=== PATIENT | female | born 1980 | race Caucasian/White ===

== ENCOUNTER 2017-02-08 17:53 | Emergency (ER) | payer OTHER ==
[~2017-02-08] VITALS: Ht 162.6 cm; Wt 61.0 kg
[~2017-02-08 17:53] MED LIST: LURA40 PO
[2017-02-08 17:57] VITALS: BP 122/83
== END 2017-02-08 21:22 | disposition left against medical advice (07) ==
LOC: EMS 17:55
DX: F32.9 Major depressive disorder, single episode, unspecified (principal); F41.9 Anxiety disorder, unspecified; F20.9 Schizophrenia, unspecified; Z53.21 Procedure and treatment not carried out due to patient leaving prior to being seen by health care provider

== ENCOUNTER 2017-05-02 11:10 | Emergency (ER) | payer OTHER ==
[~2017-05-02] VITALS: Ht 162.6 cm; Wt 59.1 kg
[2017-05-02 11:53] LABS: BASOPHILS # (AUTO) 0.07 K/uL (0.00-0.20); BASOPHILS % (AUTO) 1.1 % (0.0-2.0); EOSINOPHILS # (AUTO) 0.04 K/uL (0.00-0.70); EOSINOPHILS % (AUTO) 0.74 % (1.0-6.0); HEMOGLOBIN 12.9 g/dL (12.0-16.0); LYMPHOCYTES # (AUTO) 1.8 K/uL (1.0-4.8); LYMPHOCYTES % (AUTO) 30.8 % (22.0-44.0); MEAN CORPUSCULAR HEMOGLOBIN 24.9 pg (26.0-34.0); MEAN CORPUSCULAR HGB CONC 32.2 G/dL (31.0-37.0); MEAN CORPUSCULAR VOLUME 77 fL (80-100); MONOCYTES # (AUTO) 0.5 K/uL (0.1-1.0); NEUTROPHILS # (AUTO) 3.5 K/uL (1.8-7.7); NEUTROPHILS % (AUTO) 58.4 % (40.0-70.0); PLATELET COUNT (AUTO) 160 K/uL (150-450); RED BLOOD CELL COUNT(AUTO) 5.17 MIL/uL (4.00-5.20); RED CELL DISTRIBUTION WIDTH 18.4 % (11.5-14.5); WHITE BLOOD COUNT (AUTO) 5.9 K/uL (4.5-11.0)
[2017-05-02 11:59] LABS: ANION GAP 8 mmol/L (8-16); CALCIUM, TOTAL 8.5 mg/dL (8.8-10.5); CARBON DIOXIDE 27 mmol/L (22-29); CHLORIDE 103 mmol/L (98-107); CREATININE 0.68 mg/dL (0.60-1.30); GLOMERULAR FILTR. RATE CALC > 60 mL/min (>60); POTASSIUM 4.1 mmol/L (3.5-5.1); SODIUM SERUM 138 mmol/L (136-145); UREA NITROGEN, BLOOD 10 mg/dL (7-18)
[2017-05-02 12:05] LABS: ALANINE AMINOTRANSFERASE 36 U/L (12-78); ALBUMIN 3.3 g/dL (3.4-5.0); ASPARTATE AMINOTRANSFERASE 23 U/L (15-37); BILIRUBIN,TOTAL 0.5 mg/dL (0.1-1.0); TOTAL PROTEIN, SERUM 6.7 g/dL (6.4-8.2)
[2017-05-02 12:16] LABS: RBC MORPHOLOGY COMMENT ABNORMAL RBC MORPH
[2017-05-02 12:30] VITALS: BP 127/74
== END 2017-05-02 12:58 | disposition home or self-care (01) ==
LOC: EMS 11:17 → EEVIPCON 11:17 → EMS 12:58
DX: F20.9 Schizophrenia, unspecified (principal); F41.9 Anxiety disorder, unspecified
CPT/HCPCS: 36415; 80053; 85025; 99285; G0480

== ENCOUNTER 2023-07-21 03:18 | Inpatient (IN) | payer MEDICAID, OTHER ==
[~2023-07-21] VITALS: Ht 162.6 cm; Wt 66.7 kg
[~2023-07-21 03:18] MED LIST changes: -LURA40 PO; +LURA40TA2 PO
[2023-07-21 04:02] LABS: COVID AG,FIA SOURCE NASAL SWAB
[2023-07-21] MEDS ORDERED: ZOLPIDEM TARTRATE 10 MG TABLET PO PRN (04:15)
[2023-07-21] MEDS ORDERED: LORazepam 2 MG TABLET PO PRN (04:15)
[2023-07-21] MEDS ORDERED: HALOPERIDOL 5 MG TABLET PO PRN (04:15)
[2023-07-21 04:24] LABS: ANION GAP 11 mmol/L (8-16); CARBON DIOXIDE 25 mmol/L (22-29); CHLORIDE 101 mmol/L (98-107); CREATININE 0.65 mg/dL (0.60-1.30); GLOMERULAR FILTR. RATE CALC > 60 mL/min (>60); GLUCOSE,RANDOM 94 mg/dL (70-110); POTASSIUM 3.5 mmol/L (3.5-5.1); SODIUM SERUM 137 mmol/L (136-145); UREA NITROGEN, BLOOD 5 mg/dL (7-18)
[2023-07-21 04:25] LABS: SARS-COV2 (COVID) ANTIGEN,FIA Negative (Negative)
[2023-07-21 04:26] LABS: BASOPHILS % (AUTO) 0.4 % (0.0-2.0); EOSINOPHILS % (AUTO) 0.7 % (1.0-6.0); HEMATOCRIT 39.7 % (36-46); HEMOGLOBIN 12.8 g/dL (12.0-16.0); LYMPHOCYTES # (AUTO) 1.7 K/uL (1.0-4.8); LYMPHOCYTES % (AUTO) 27.3 % (22.0-44.0); MEAN CORPUSCULAR HEMOGLOBIN 24.1 pg (26.0-34.0); MEAN CORPUSCULAR HGB CONC 32.3 G/dL (31.0-37.0); MEAN CORPUSCULAR VOLUME 75 fL (80-100); MONOCYTES # (AUTO) 0.5 K/uL (0.1-1.0); MONOCYTES % (AUTO) 8.6 % (2.0-9.0); NEUTROPHILS # (AUTO) 3.9 K/uL (1.8-7.7); PLATELET COUNT (AUTO) 140 K/uL (150-450); RED BLOOD CELL COUNT(AUTO) 5.33 MIL/uL (4.00-5.20); RED CELL DISTRIBUTION WIDTH 14.7 % (11.5-14.5); WHITE BLOOD COUNT (AUTO) 6.3 K/uL (4.5-11.0)
[2023-07-21 04:30] LABS: ALBUMIN 3.6 g/dL (3.4-5.0); ALKALINE PHOSPHATASE 66 U/L (46-116); ASPARTATE AMINOTRANSFERASE 10 U/L (15-37); BILIRUBIN,TOTAL 1.3 mg/dL (0.1-1.0); TOTAL PROTEIN, SERUM 6.7 g/dL (6.4-8.2)
[2023-07-21 04:37] LABS: ALCOHOL, BLOOD (SERUM) < 3 mg/dL (0-10)
[2023-07-21 04:42] LABS: ALANINE AMINOTRANSFERASE < 6 U/L (12-78)
[2023-07-22] MEDS ORDERED: ONDANSETRON HCL 4 MG TABLET PO PRN (12:45)
[2023-07-22] MEDS ORDERED: MAG HYDROX/AL HYDROX/SIMETH ES 30 ML SUSPENSION UDCUP PO PRN (12:45)
[2023-07-22] MEDS ORDERED: CloNIDine HCL 0.1 MG TABLET PO PRN (12:45)
[2023-07-22] MEDS ORDERED: ALBUTEROL SULFATE HFA 90 MCG/PUFF 8 GM INHALER IH PRN (12:45)
[2023-07-22] MEDS ORDERED: IBUPROFEN 400 MG TABLET PO PRN (12:45)
[2023-07-22] MEDS ORDERED: LOPERAMIDE HCL 2 MG CAPSULE PO PRN (12:45)
[2023-07-22] MEDS ORDERED: PETROLATUM,WHITE 28 GM JELLY TP PRN (12:45)
[2023-07-22] MEDS ORDERED: NICOTINE 14 MG/24 HOUR PATCH TD PRN (12:45)
[2023-07-22] MEDS ORDERED: MAGNESIUM HYDROXIDE SUSPENSION 30 ML UDCUP PO PRN (12:45)
[2023-07-22] MEDS ORDERED: GuaiFENesin/D-METHORPHAN [SUGAR-FREE] 200-20MG/10 ML SYRUP UDCUP PO PRN (12:45)
[2023-07-22] MEDS ORDERED: DOCUSATE SODIUM 100 MG CAPSULE PO PRN (12:45)
[2023-07-22] MEDS ORDERED: ACETAMINOPHEN 325 MG TABLET PO PRN (12:45)
[2023-07-22 13:01] LABS: APPEARANCE,URINE CLEAR (CLEAR); BILIRUBIN,URINE NEGATIVE (NEGATIVE); COLOR,URINE LIGHT YELLOW (YELLOW); GLUCOSE, URINE (UA) NEGATIVE (NEGATIVE); KETONES,URINE 40-60 mg/dL (NEGATIVE); LEUKOCYTE ESTERASE ,URINE NEGATIVE (NEGATIVE); NITRATE,URINE NEGATIVE (NEGATIVE); OCCULT BLOOD,URINE NEGATIVE (NEGATIVE); PROTEIN,URINE NEGATIVE (NEGATIVE); SPECIFIC GRAVITIY, URINE 1.013 (1.003-1.030); UROBILINOGEN,URINE <=1.0 mg/dL (<=1.0)
[2023-07-22 13:07] LABS: ALCOHOL, URINE DRUG SCREEN NEGATIVE (NEGATIVE); AMPHET/METH SCREEN,URINE NEGATIVE (NEGATIVE); BARBITURATE SCREEN, URINE NEGATIVE (NEGATIVE); BENZODIAZEPINES SCREEN,URINE NEGATIVE (NEGATIVE); CANNABINOID SCREEN,URINE NEGATIVE (NEGATIVE); COCAINE SCREEN,URINE NEGATIVE (NEGATIVE); METHADONE SCREEN, URINE NEGATIVE (NEGATIVE); OPIATE SCREEN,URINE NEGATIVE (NEGATIVE); PHENCYCLIDINE SCREEN,URINE NEGATIVE (NEGATIVE)
[2023-07-22 14:51] VITALS: BP 92/77; PULSE 101; RESP 18; TEMP 97.3
[2023-07-22] MEDS ORDERED: PNEUMOCOCCAL VACCINE POLYVALENT 0.5 ML SYRINGE [PPSV23] IM. ONE (16:00)
[2023-07-22] MEDS: LURASIDONE HCL 60 MG TABLET PO SCH (17:47)
[2023-07-22 22:40] VITALS: BP 101/73; PULSE 98; RESP 18; TEMP 97.3
[2023-07-23 06:34] LABS: HEMOGLOBIN A1C 4.7 % (3.8-5.6)
[2023-07-23] MEDS: LURASIDONE HCL 60 MG TABLET PO SCH ×2 (06:48→17:18)
[2023-07-23 07:03] LABS: THYROID STIMULATING HORMONE 0.85 uIU/mL (0.36-3.74)
[2023-07-23 07:28] LABS: CHOL/HDL RATIO 2.4 (3.9-5.7)
[2023-07-23 10:05] VITALS: BP 101/68; PULSE 87; RESP 17; TEMP 98.1
[2023-07-23 20:53] VITALS: BP 104/64; PULSE 81; RESP 18; TEMP 97.6
[2023-07-24] MEDS: LURASIDONE HCL 60 MG TABLET PO SCH ×2 (06:57→18:25)
[2023-07-24 10:40] VITALS: BP 119/67; PULSE 89; RESP 18
[2023-07-24 20:56] VITALS: BP 121/67; PULSE 88; RESP 18; TEMP 98
[2023-07-25] MEDS: LURASIDONE HCL 60 MG TABLET PO SCH (06:59)
[2023-07-25 08:10] VITALS: BP 112/71; PULSE 82; RESP 18; TEMP 97.1
[2023-07-25] MEDS ORDERED: LURA60TA4 PO (11:41)
== END 2023-07-25 15:05 | disposition home or self-care (01) | DRG 750 ==
LOC: EMS 03:18 → 3EI 07-22 11:26
PROVIDERS: ADMIT Psychiatry & Neurology Child & Adolescent Psychiatry; ATTEND Psychiatry & Neurology Child & Adolescent Psychiatry
DX: F25.1 Schizoaffective disorder, depressive type (principal); D69.6 Thrombocytopenia, unspecified; R45.851 Suicidal ideations; F41.9 Anxiety disorder, unspecified; F32.9 Major depressive disorder, single episode, unspecified; Z20.822 Contact with and (suspected) exposure to COVID-19; G47.00 Insomnia, unspecified; E80.6 Other disorders of bilirubin metabolism; Z79.899 Other long term (current) drug therapy
CPT/HCPCS: 80053; 80061; 80307; 81003; 83036; 84443; 84703; 85025; 99285; G0480; Q9967

== ENCOUNTER 2024-06-10 18:52 | Inpatient (IN) | payer MEDICAID, OTHER ==
[~2024-06-10] VITALS: Ht 162.6 cm; Wt 74.5 kg
[~2024-06-10 18:52] MED LIST changes: -LURA40TA2 PO; +LURA60TA4 PO
[2024-06-10 19:33] LABS: BASOPHILS % (AUTO) 0.6 % (0.0-2.0); HEMATOCRIT 35.9 % (36-46); HEMOGLOBIN 11.2 g/dL (12.0-16.0); LYMPHOCYTES % (AUTO) 25.4 % (22.0-44.0); MEAN CORPUSCULAR HEMOGLOBIN 22.8 pg (26.0-34.0); MEAN CORPUSCULAR HGB CONC 31.2 G/dL (31.0-37.0); MEAN CORPUSCULAR VOLUME 73 fL (80-100); MONOCYTES # (AUTO) 0.6 K/uL (0.1-1.0); MONOCYTES % (AUTO) 7.8 % (2.0-9.0); NEUTROPHILS # (AUTO) 5.2 K/uL (1.8-7.7); NEUTROPHILS % (AUTO) 65.2 % (40.0-70.0); PLATELET COUNT (AUTO) 183 K/uL (150-450); RED BLOOD CELL COUNT(AUTO) 4.91 MIL/uL (4.00-5.20); RED CELL DISTRIBUTION WIDTH 17.4 % (11.5-14.5); WHITE BLOOD COUNT (AUTO) 7.9 K/uL (4.5-11.0)
[2024-06-10 19:42] LABS: ANION GAP 6 mmol/L (8-16); CALCIUM, TOTAL 8.9 mg/dL (8.8-10.5); CARBON DIOXIDE 29 mmol/L (22-29); CHLORIDE 101 mmol/L (98-107); CREATININE 0.58 mg/dL (0.60-1.30); GLOMERULAR FILTR. RATE CALC > 60 mL/min (>60); GLUCOSE,RANDOM 83 mg/dL (70-110); POTASSIUM 3.6 mmol/L (3.5-5.1); SODIUM SERUM 136 mmol/L (136-145); UREA NITROGEN, BLOOD 13 mg/dL (7-18)
[2024-06-10 19:54] LABS: HCG,QUANTITATIVE < 1 mIU/mL (0-6); THYROID STIMULATING HORMONE 1.89 uIU/mL (0.36-3.74)
[2024-06-10 20:05] LABS: ALCOHOL, BLOOD (SERUM) < 3 mg/dL (0-10)
[2024-06-10 20:14] LABS: COVID AG,FIA SOURCE NPH
[2024-06-10 20:38] LABS: SARS-COV2 (COVID) ANTIGEN,FIA Negative (Negative)
[2024-06-10 21:20] LABS: APPEARANCE,URINE CLEAR (CLEAR); BILIRUBIN,URINE NEGATIVE (NEGATIVE); COLOR,URINE COLORLESS (YELLOW); GLUCOSE, URINE (UA) NEGATIVE (NEGATIVE); KETONES,URINE TRACE mg/dL (NEGATIVE); LEUKOCYTE ESTERASE ,URINE NEGATIVE (NEGATIVE); NITRATE,URINE NEGATIVE (NEGATIVE); OCCULT BLOOD,URINE NEGATIVE (NEGATIVE); PH,URINE 6.5 (5.0-8.0); PH,URINE DRUG SCREEN 6.5 (5.0-8.0); PROTEIN,URINE NEGATIVE (NEGATIVE); SPECIFIC GRAVITIY, URINE 1.003 (1.003-1.030); UROBILINOGEN,URINE <=1.0 mg/dL (<=1.0)
[2024-06-10 21:25] LABS: ALCOHOL, URINE DRUG SCREEN NEGATIVE (NEGATIVE); AMPHET/METH SCREEN,URINE NEGATIVE (NEGATIVE); BARBITURATE SCREEN, URINE NEGATIVE (NEGATIVE); BENZODIAZEPINES SCREEN,URINE NEGATIVE (NEGATIVE); CANNABINOID SCREEN,URINE NEGATIVE (NEGATIVE); COCAINE SCREEN,URINE NEGATIVE (NEGATIVE); METHADONE SCREEN, URINE NEGATIVE (NEGATIVE); OPIATE SCREEN,URINE NEGATIVE (NEGATIVE); PHENCYCLIDINE SCREEN,URINE NEGATIVE (NEGATIVE)
[2024-06-10] MEDS ORDERED: ZOLPIDEM TARTRATE 10 MG TABLET PO PRN (23:15)
[2024-06-11 04:27] VITALS: BP 129/91; PULSE 98; RESP 18; TEMP 98.2
[2024-06-11 06:08] VITALS: BP 126/91; PULSE 98; RESP 18; TEMP 98.2; O2SAT 99
[2024-06-11 08:36] VITALS: BP 123/64; PULSE 94; RESP 17; TEMP 97.7; O2SAT 94
[2024-06-11] MEDS ORDERED: PETROLATUM,WHITE 28 GM JELLY TP PRN (09:00)
[2024-06-11] MEDS ORDERED: MAGNESIUM HYDROXIDE SUSPENSION 30 ML UDCUP PO PRN (09:00)
[2024-06-11] MEDS ORDERED: CloNIDine HCL 0.1 MG TABLET PO PRN (09:00)
[2024-06-11] MEDS ORDERED: DOCUSATE SODIUM 100 MG CAPSULE PO PRN (09:00)
[2024-06-11] MEDS ORDERED: OMEPRAZOLE 20 MG CAPSULE PO PRN (09:00)
[2024-06-11] MEDS ORDERED: ALBUTEROL SULFATE HFA 90 MCG/PUFF 8 GM INHALER IH PRN (09:00)
[2024-06-11] MEDS ORDERED: LOPERAMIDE HCL 2 MG CAPSULE PO PRN (09:00)
[2024-06-11] MEDS ORDERED: BENZOCAINE/MENTHOL LOZENGE PO PRN (09:00)
[2024-06-11] MEDS: LITHIUM CARBONATE 300 MG CAPSULE PO SCH (10:07)
[2024-06-11] MEDS: DIVALPROEX SODIUM 500 MG DR TABLET PO SCH (10:07)
[2024-06-11] MEDS: LORazepam 2 MG TABLET PO PRN (11:05)
[2024-06-11] MEDS: HALOPERIDOL 5 MG TABLET PO PRN (11:05)
[2024-06-11] MEDS: LURASIDONE HCL 60 MG TABLET PO SCH (16:57)
[2024-06-11] MEDS: RisperiDONE 2 MG TABLET PO SCH (16:57)
[2024-06-11] MEDS ORDERED: DIVALPROEX SODIUM 500 MG DR TABLET PO SCH (17:00)
[2024-06-11] MEDS ORDERED: LITHIUM CARBONATE 300 MG CAPSULE PO SCH (17:00)
[2024-06-11 20:46] VITALS: BP 100/65; PULSE 89; RESP 16; TEMP 98.4; O2SAT 98
[2024-06-12 08:23] VITALS: BP 105/60; PULSE 80; RESP 17; TEMP 97.3; O2SAT 99
[2024-06-12] MEDS: DiphenhydrAMINE HCL 50 MG/ML VIAL IM ONE (17:51)
[2024-06-12] MEDS: LORazepam 2 MG/ML VIAL IM ONE (17:51)
[2024-06-12] MEDS: HALOPERIDOL LACTATE 5 MG/ML VIAL IM ONE (17:52)
[2024-06-12 20:13] VITALS: BP 104/60; PULSE 98; RESP 18; TEMP 97.5; O2SAT 99
[2024-06-13 08:10] VITALS: BP 102/64; PULSE 89; RESP 16; TEMP 97.6; O2SAT 100
[2024-06-13] MEDS ORDERED: LORazepam 2 MG/ML VIAL ONE (16:46)
[2024-06-13] MEDS ORDERED: HALOPERIDOL LACTATE 5 MG/ML VIAL ONE (16:47)
[2024-06-13] MEDS ORDERED: DiphenhydrAMINE HCL 50 MG/ML VIAL ONE (16:47)
[2024-06-13 17:10] VITALS: BP 102/63; PULSE 63; RESP 17; TEMP 97.7; O2SAT 98
[2024-06-13] MEDS: ACETAMINOPHEN 325 MG TABLET PO PRN (17:48)
[2024-06-13] MEDS: DiphenhydrAMINE HCL 50 MG/ML VIAL IM ONE (18:22)
[2024-06-13] MEDS: LORazepam 2 MG/ML VIAL IM ONE (18:22)
[2024-06-13] MEDS: HALOPERIDOL LACTATE 5 MG/ML VIAL IM ONE (18:23)
[2024-06-13 20:00] VITALS: RESP 16
[2024-06-14 08:04] VITALS: BP 100/60; PULSE 78; RESP 18; TEMP 98; O2SAT 100
[2024-06-14] MEDS ORDERED: HALOPERIDOL LACTATE 5 MG/ML VIAL ONE (08:56)
[2024-06-14] MEDS ORDERED: LORazepam 2 MG/ML VIAL ONE (08:56)
[2024-06-14] MEDS ORDERED: DiphenhydrAMINE HCL 50 MG/ML VIAL ONE (08:57)
[2024-06-14] MEDS: LORazepam 2 MG/ML VIAL IM ONE (09:42)
[2024-06-14] MEDS: DiphenhydrAMINE HCL 50 MG/ML VIAL IM ONE (09:42)
[2024-06-14] MEDS: HALOPERIDOL LACTATE 5 MG/ML VIAL IM ONE (09:45)
[2024-06-14 20:00] VITALS: BP 110/60; PULSE 105; RESP 17; TEMP 97.1; O2SAT 100
[2024-06-15 08:08] VITALS: BP 116/73; PULSE 84; RESP 16; TEMP 98; O2SAT 97
[2024-06-15 08:29] LABS: LITHIUM < 0.20 mmol/L (0.60-1.20)
[2024-06-15 08:34] LABS: VALPROIC ACID < 3 mcg/mL (50-100)
[2024-06-15 20:00] VITALS: RESP 16
[2024-06-16 09:33] VITALS: BP 113/60; PULSE 87; RESP 17; TEMP 97.6; O2SAT 97
[2024-06-16 20:00] VITALS: BP 118/75; PULSE 100; RESP 16; TEMP 98; O2SAT 97
[2024-06-17 08:18] VITALS: BP 110/66; PULSE 93; RESP 20; TEMP 97.9; O2SAT 98
[2024-06-17 20:16] VITALS: BP 131/66; PULSE 93; RESP 19; TEMP 97.5
[2024-06-18 08:30] VITALS: BP 114/67; PULSE 86; RESP 16; TEMP 98; O2SAT 99
[2024-06-18] MEDS: GuaiFENesin [SUGAR-FREE] 200 MG/10 ML SOLUTION UDCUP PO SCH (12:00)
[2024-06-18] MEDS: VALPROIC ACID 250 MG/5 ML SOLUTION UDCUP PO SCH (15:59)
[2024-06-18] MEDS: LITHIUM CITRATE SOLUTION 8 MEQ/5 ML [8 MEQ = 300 MG] UDCUP PO SCH (16:02)
[2024-06-18 20:00] VITALS: RESP 16
[2024-06-19 08:19] LABS: LITHIUM < 0.20 mmol/L (0.60-1.20)
[2024-06-19 08:24] LABS: VALPROIC ACID 23 mcg/mL (50-100)
[2024-06-19 08:29] VITALS: BP 105/69; PULSE 89; RESP 18; TEMP 97.5; O2SAT 99
[2024-06-19] MEDS ORDERED: DiphenhydrAMINE HCL 50 MG/ML VIAL ONE (08:58)
[2024-06-19] MEDS ORDERED: LORazepam 2 MG/ML VIAL ONE (08:58)
[2024-06-19] MEDS ORDERED: HALOPERIDOL LACTATE 5 MG/ML VIAL ONE (08:58)
[2024-06-19] MEDS: LORazepam 2 MG/ML VIAL IM ONE (17:37)
[2024-06-19] MEDS: HALOPERIDOL LACTATE 5 MG/ML VIAL IM ONE (17:37)
[2024-06-19] MEDS: DiphenhydrAMINE HCL 50 MG/ML VIAL IM ONE (17:38)
[2024-06-20 02:13] VITALS: RESP 16
[2024-06-20 08:15] VITALS: BP 111/64; PULSE 90; RESP 18; TEMP 97
[2024-06-20 21:31] VITALS: BP 119/78; PULSE 98; RESP 18; TEMP 97.6; O2SAT 100
[2024-06-20] MEDS: BACITRACIN 28 GM OINTMENT TP PRN (21:40)
[2024-06-21 01:18] VITALS: BP 112/76; PULSE 95; RESP 16; TEMP 98; O2SAT 98
[2024-06-21] MEDS: IBUPROFEN 600 MG TABLET PO PRN (01:18)
[2024-06-21] MEDS: MAG HYDROX/ALUMINUM HYD/SIMETH ES 30 ML SUSPENSION UDCUP PO PRN (01:19)
[2024-06-21 02:18] VITALS: PULSE 96; TEMP 97.8
[2024-06-21 09:13] VITALS: BP 111/64; PULSE 98; RESP 17; TEMP 97.5; O2SAT 97
[2024-06-21 20:54] VITALS: BP 131/67; PULSE 95; RESP 18; TEMP 97.1; O2SAT 98
[2024-06-22] VITALS (10 sets, daily range): BP systolic 113–127; BP diastolic 63–86; PULSE 87–103; RESP 16–20; TEMP 97.1–99.5; O2SAT 97–100
[2024-06-23 08:28] VITALS: BP 108/63; PULSE 100; RESP 16; TEMP 97.6; O2SAT 98
[2024-06-23 09:22] LABS: LITHIUM 0.24 mmol/L (0.60-1.20)
[2024-06-23 20:21] VITALS: BP 113/70; PULSE 97; RESP 16; TEMP 98.3; O2SAT 98
[2024-06-24] MEDS: LITHIUM CITRATE SOLUTION 8 MEQ/5 ML [8 MEQ = 300 MG] UDCUP PO SCH (08:00)
[2024-06-24 08:34] VITALS: BP 110/87; PULSE 100; RESP 18; TEMP 97.9; O2SAT 99
[2024-06-24] MEDS ORDERED: LITH300C3 PO ×2 (14:59→17:51)
[2024-06-24] MEDS ORDERED: RISP-32 PO ×2 (14:59→17:51)
[2024-06-24] MEDS ORDERED: LURA60TA PO ×2 (14:59→17:51)
[2024-06-24] MEDS ORDERED: DIVA-112 PO ×2 (14:59→17:51)
[2024-06-24] MEDS: DIVALPROEX SODIUM 500 MG DR TABLET PO SCH (16:00)
[2024-06-24] MEDS: LITHIUM CARBONATE 300 MG CAPSULE PO SCH (16:00)
[2024-06-24] MEDS: ONDANSETRON HCL 4 MG TABLET PO PRN (16:48)
== END 2024-06-24 17:25 | disposition home or self-care (01) | DRG 750 ==
LOC: EMS 18:52 → B3A 06-11 00:54
PROVIDERS: ADMIT Psychiatry & Neurology Psychiatry; ATTEND Psychiatry & Neurology Psychiatry
DX: F25.0 Schizoaffective disorder, bipolar type (principal); Z91.148 Patient's other noncompliance with medication regimen for other reason; F41.9 Anxiety disorder, unspecified; K59.00 Constipation, unspecified; G47.00 Insomnia, unspecified; Z20.822 Contact with and (suspected) exposure to COVID-19
CPT/HCPCS: 80048; 80164; 80178; 80307; 81003; 83880; 84443; 84702; 85025; 99285; G0480; J1200; J1630; J2060; Q0162

== ENCOUNTER 2024-12-28 00:42 | Inpatient (IN) | payer MEDICAID ==
[~2024-12-28] VITALS: Ht 162.6 cm; Wt 84.0 kg
[~2024-12-28 00:42] MED LIST changes: +DIVA-112 PO; +LITH300C3 PO; +LURA60TA PO; -LURA60TA4 PO; +RISP-32 PO
[2024-12-28 01:51] LABS: COVID AG,FIA SOURCE NASAL SWAB
[2024-12-28] MEDS: DiphenhydrAMINE HCL 50 MG/ML VIAL IM ONE (01:55)
[2024-12-28] MEDS: HALOPERIDOL LACTATE 5 MG/ML VIAL IM ONE (01:56)
[2024-12-28] MEDS: LORazepam 2 MG/ML VIAL IM ONE (01:56)
[2024-12-28 02:12] LABS: SARS-COV2 (COVID) ANTIGEN,FIA Negative (Negative)
[2024-12-28 03:04] LABS: BASOPHILS % (AUTO) 0.7 % (0.0-2.0); EOSINOPHILS % (AUTO) 0.5 % (1.0-6.0); HEMOGLOBIN 11.5 g/dL (12.0-16.0); LYMPHOCYTES # (AUTO) 1.9 K/uL (1.0-4.8); LYMPHOCYTES % (AUTO) 21.4 % (22.0-44.0); MEAN CORPUSCULAR HEMOGLOBIN 23.7 pg (26.0-34.0); MEAN CORPUSCULAR HGB CONC 32.1 G/dL (31.0-37.0); MEAN CORPUSCULAR VOLUME 74 fL (80-100); MONOCYTES # (AUTO) 0.5 K/uL (0.1-1.0); NEUTROPHILS # (AUTO) 6.2 K/uL (1.8-7.7); NEUTROPHILS % (AUTO) 71.4 % (40.0-70.0); PLATELET COUNT (AUTO) 183 K/uL (150-450); RED BLOOD CELL COUNT(AUTO) 4.87 MIL/uL (4.00-5.20); RED CELL DISTRIBUTION WIDTH 14.9 % (11.5-14.5); WHITE BLOOD COUNT (AUTO) 8.7 K/uL (4.5-11.0)
[2024-12-28 03:15] LABS: ANION GAP 7 mmol/L (8-16); CALCIUM, TOTAL 8.5 mg/dL (8.8-10.5); CARBON DIOXIDE 31 mmol/L (22-29); CHLORIDE 104 mmol/L (98-107); CREATININE 0.67 mg/dL (0.60-1.30); GLOMERULAR FILTR. RATE CALC > 60 mL/min (>60); GLUCOSE,RANDOM 106 mg/dL (70-110); POTASSIUM 3.4 mmol/L (3.5-5.1); SODIUM SERUM 141 mmol/L (136-145); UREA NITROGEN, BLOOD 13 mg/dL (7-18)
[2024-12-28 03:30] LABS: ALCOHOL, BLOOD (SERUM) < 3 mg/dL (0-10)
[2024-12-28] MEDS ORDERED: HALOPERIDOL 5 MG TABLET PO PRN (05:45)
[2024-12-28] MEDS ORDERED: ACETAMINOPHEN 325 MG TABLET PO PRN (05:45)
[2024-12-28] MEDS ORDERED: MAGNESIUM HYDROXIDE SUSPENSION 30 ML UDCUP PO PRN (05:45)
[2024-12-28] MEDS ORDERED: MAG HYDROX/ALUMINUM HYD/SIMETH ES 30 ML SUSPENSION UDCUP PO PRN (05:45)
[2024-12-28] MEDS ORDERED: ZOLPIDEM TARTRATE 10 MG TABLET PO PRN (05:45)
[2024-12-28] MEDS ORDERED: LOPERAMIDE HCL 2 MG CAPSULE PO PRN (05:45)
[2024-12-28 06:00] VITALS: O2SAT 100
[2024-12-28 12:13] VITALS: BP 121/86; PULSE 95; RESP 19; TEMP 98.3; O2SAT 0
[2024-12-28] MEDS ORDERED: INFLUENZA VIRUS VACCINE TVS (6MO+) 2024-25/PF 45 MCG/0.5 ML SYRINGE IM. ONE (13:45)
[2024-12-29 08:20] VITALS: BP 136/90; PULSE 87; RESP 17; TEMP 98; O2SAT 100
[2024-12-29 09:09] LABS: FREE T4 (FREE THYROXINE) 1.38 ng/dL (0.76-1.46); THYROID STIMULATING HORMONE 0.96 uIU/mL (0.36-3.74)
[2024-12-29] MEDS: LITHIUM CARBONATE 300 MG CAPSULE PO SCH (13:00)
[2024-12-29] MEDS ORDERED: IBUPROFEN 400 MG TABLET PO PRN (15:15)
[2024-12-29] MEDS ORDERED: GuaiFENesin/D-METHORPHAN [SUGAR-FREE] 200-20MG/10 ML SYRUP UDCUP PO PRN (15:15)
[2024-12-29] MEDS ORDERED: PETROLATUM,WHITE 28 GM JELLY TP PRN (15:15)
[2024-12-29] MEDS ORDERED: NICOTINE 14 MG/24 HOUR PATCH TD PRN (15:15)
[2024-12-29] MEDS ORDERED: LOPERAMIDE HCL 2 MG CAPSULE PO PRN (15:15)
[2024-12-29] MEDS ORDERED: CloNIDine HCL 0.1 MG TABLET PO PRN (15:15)
[2024-12-29] MEDS ORDERED: MAG HYDROX/ALUMINUM HYD/SIMETH ES 30 ML SUSPENSION UDCUP PO PRN (15:15)
[2024-12-29] MEDS ORDERED: ONDANSETRON 4 MG TABLET PO PRN (15:15)
[2024-12-29] MEDS ORDERED: ALBUTEROL SULFATE HFA 90 MCG/PUFF 8 GM INHALER IH PRN (15:15)
[2024-12-29] MEDS ORDERED: ACETAMINOPHEN 325 MG TABLET PO PRN (15:15)
[2024-12-29] MEDS: DIVALPROEX SODIUM 500 MG DR TABLET PO SCH (17:00)
[2024-12-29] MEDS: RisperiDONE 2 MG TABLET PO SCH (17:03)
[2024-12-29 20:27] VITALS: BP 107/71; PULSE 92; RESP 18; TEMP 97.5; O2SAT 100
[2024-12-30 08:08] VITALS: BP 126/73; PULSE 82; RESP 16; TEMP 96.9; O2SAT 99
[2024-12-30 09:16] LABS: HEMOGLOBIN A1C 5.3 % (3.8-5.6)
[2024-12-30 09:35] LABS: CHOL/HDL RATIO 1.7 (3.9-5.7); THYROID STIMULATING HORMONE 1.79 uIU/mL (0.36-3.74)
[2024-12-30] MEDS: POTASSIUM CHLORIDE 20 MEQ ER TABLET PO ONE (12:35)
[2024-12-30 20:34] VITALS: BP 104/76; PULSE 104; RESP 15; TEMP 97.3; O2SAT 96
[2024-12-31] MEDS: MAGNESIUM HYDROXIDE SUSPENSION 30 ML UDCUP PO PRN (06:45)
[2024-12-31 08:09] VITALS: BP 144/84; PULSE 100; RESP 16; TEMP 97.9; O2SAT 97
[2024-12-31 08:55] LABS: APPEARANCE,URINE CLEAR (CLEAR); BILIRUBIN,URINE NEGATIVE (NEGATIVE); COLOR,URINE COLORLESS (YELLOW); GLUCOSE, URINE (UA) NEGATIVE (NEGATIVE); KETONES,URINE NEGATIVE (NEGATIVE); LEUKOCYTE ESTERASE ,URINE NEGATIVE (NEGATIVE); NITRATE,URINE NEGATIVE (NEGATIVE); OCCULT BLOOD,URINE NEGATIVE (NEGATIVE); PROTEIN,URINE NEGATIVE (NEGATIVE); SPECIFIC GRAVITIY, URINE 1.005 (1.003-1.030); UROBILINOGEN,URINE <=1.0 mg/dL (<=1.0)
[2024-12-31 09:02] LABS: AMPHET/METH SCREEN,URINE NEGATIVE (NEGATIVE); BARBITURATE SCREEN, URINE NEGATIVE (NEGATIVE); BENZODIAZEPINES SCREEN,URINE NEGATIVE (NEGATIVE); CANNABINOID SCREEN,URINE NEGATIVE (NEGATIVE); COCAINE SCREEN,URINE NEGATIVE (NEGATIVE); METHADONE SCREEN, URINE NEGATIVE (NEGATIVE); OPIATE SCREEN,URINE NEGATIVE (NEGATIVE); PHENCYCLIDINE SCREEN,URINE NEGATIVE (NEGATIVE)
[2024-12-31 09:03] LABS: ALCOHOL, URINE DRUG SCREEN NEGATIVE (NEGATIVE)
[2024-12-31 20:05] VITALS: BP 111/66; PULSE 97; RESP 18; TEMP 97.5; O2SAT 97
[2025-01-01 08:10] VITALS: BP 117/77; PULSE 92; RESP 16; TEMP 97.6; O2SAT 97
[2025-01-01 09:00] LABS: VALPROIC ACID < 3 mcg/mL (50-100)
[2025-01-01 09:21] LABS: LITHIUM < 0.20 mmol/L (0.60-1.20)
[2025-01-01] MEDS ORDERED: HALOPERIDOL LACTATE 5 MG/ML VIAL ONE (13:58)
[2025-01-01] MEDS ORDERED: LORazepam 2 MG/ML VIAL ONE (13:58)
[2025-01-01] MEDS ORDERED: DiphenhydrAMINE HCL 50 MG/ML VIAL ONE (13:58)
[2025-01-01] MEDS: LORazepam 2 MG/ML VIAL IM ONE (14:13)
[2025-01-01] MEDS: HALOPERIDOL LACTATE 5 MG/ML VIAL IM ONE (14:14)
[2025-01-01] MEDS: DiphenhydrAMINE HCL 50 MG/ML VIAL IM ONE (14:14)
[2025-01-01 20:15] VITALS: RESP 19
[2025-01-02 08:04] VITALS: BP 100/61; PULSE 95; RESP 17; TEMP 98; O2SAT 100
[2025-01-02] MEDS: LORazepam 2 MG TABLET PO PRN (08:06)
[2025-01-02] MEDS ORDERED: DiphenhydrAMINE HCL 50 MG/ML VIAL ONE (11:34)
[2025-01-02] MEDS ORDERED: LORazepam 2 MG/ML VIAL ONE (11:34)
[2025-01-02] MEDS ORDERED: HALOPERIDOL LACTATE 5 MG/ML VIAL ONE (11:34)
[2025-01-02] MEDS: LORazepam 2 MG/ML VIAL IM ONE (11:48)
[2025-01-02] MEDS: DiphenhydrAMINE HCL 50 MG/ML VIAL IM ONE (11:48)
[2025-01-02] MEDS: HALOPERIDOL LACTATE 5 MG/ML VIAL IM ONE (11:49)
[2025-01-02 20:21] VITALS: RESP 16
[2025-01-03 08:23] VITALS: BP 104/67; PULSE 120; RESP 18; TEMP 98.8
[2025-01-03 08:34] VITALS: PULSE 100
[2025-01-03 20:08] VITALS: PULSE 99; RESP 17; TEMP 97.1; O2SAT 97
[2025-01-04 08:17] VITALS: BP 103/66; PULSE 72; RESP 16; TEMP 96.9; O2SAT 100
[2025-01-04 08:53] LABS: LITHIUM < 0.20 mmol/L (0.60-1.20)
[2025-01-04 10:34] LABS: VALPROIC ACID < 3 mcg/mL (50-100)
[2025-01-04] MEDS: LITHIUM CARBONATE 600 MG CAPSULE PO SCH (16:02)
[2025-01-04] MEDS ORDERED: DiphenhydrAMINE HCL 50 MG/ML VIAL ONE (18:24)
[2025-01-04] MEDS ORDERED: LORazepam 2 MG/ML VIAL ONE (18:24)
[2025-01-04] MEDS ORDERED: HALOPERIDOL LACTATE 5 MG/ML VIAL ONE (18:26)
[2025-01-04] MEDS: LORazepam 2 MG/ML VIAL IM ONE (18:47)
[2025-01-04] MEDS: HALOPERIDOL LACTATE 5 MG/ML VIAL IM ONE (18:47)
[2025-01-04] MEDS: DiphenhydrAMINE HCL 50 MG/ML VIAL IM ONE (18:47)
[2025-01-04 20:15] VITALS: BP 122/85; PULSE 92; RESP 18; TEMP 97.2; O2SAT 98
[2025-01-05 08:21] VITALS: RESP 18
[2025-01-05] MEDS: RisperiDONE CONC 2 MG/2 ML SOLUTION ORAL.SYG PO SCH (08:28)
[2025-01-05] MEDS: VALPROIC ACID 250 MG/5 ML SOLUTION UDCUP PO SCH (08:28)
[2025-01-05] MEDS: LITHIUM CITRATE SOLUTION 8 MEQ/5 ML [8 MEQ = 300 MG] UDCUP PO SCH (08:28)
[2025-01-05 20:27] VITALS: BP 140/80; PULSE 98; RESP 16; TEMP 98.3; O2SAT 99
[2025-01-06 08:37] VITALS: BP 118/76; PULSE 72; RESP 16; TEMP 98.4; O2SAT 96
[2025-01-06 20:32] VITALS: BP 103/55; PULSE 91; RESP 18; TEMP 97.5; O2SAT 95
[2025-01-07 08:17] VITALS: BP 115/69; PULSE 100; RESP 16; TEMP 97.8; O2SAT 99
[2025-01-07 21:28] VITALS: BP 90/65; PULSE 81; RESP 18; TEMP 97.8; O2SAT 95
[2025-01-07 21:30] VITALS: BP 90/65
[2025-01-08 09:51] VITALS: BP 111/61; PULSE 88; RESP 18; TEMP 97.5; O2SAT 97
[2025-01-08 20:30] VITALS: BP 125/80; PULSE 99; RESP 18; TEMP 97.3; O2SAT 99
[2025-01-08] MEDS: DOCUSATE SODIUM 100 MG CAPSULE PO PRN (22:25)
[2025-01-09 08:37] VITALS: BP 107/66; PULSE 91; RESP 16; TEMP 97.6; O2SAT 98
[2025-01-09 20:01] VITALS: BP 106/77; PULSE 98; RESP 16; TEMP 97.4; O2SAT 98
[2025-01-10 08:25] VITALS: BP 107/61; PULSE 97; RESP 16; TEMP 96.9; O2SAT 99
[2025-01-10 08:29] LABS: LITHIUM 0.51 mmol/L (0.60-1.20)
[2025-01-10] MEDS ORDERED: RISP1SOL10 PO (11:07)
[2025-01-10] MEDS ORDERED: LITH8SOL8 PO (11:07)
[2025-01-10] MEDS ORDERED: VALP250S23 PO (11:07)
== END 2025-01-10 16:00 | disposition home or self-care (01) | DRG 750 ==
LOC: EMS 00:50 → B3A 08:05
PROVIDERS: ADMIT Psychiatry & Neurology Psychiatry; ATTEND Psychiatry & Neurology Psychiatry
PROC: GZHZZZZ Group Psychotherapy (ICD-10-PCS; principal; 2024-12-29)
PROC: GZ52ZZZ Individual Psychotherapy, Cognitive (ICD-10-PCS; 2024-12-29)
PROC: GZ56ZZZ Individual Psychotherapy, Supportive (ICD-10-PCS; 2024-12-29)
DX: F25.0 Schizoaffective disorder, bipolar type (principal); R45.851 Suicidal ideations; F15.10 Other stimulant abuse, uncomplicated; I10 Essential (primary) hypertension; Z20.822 Contact with and (suspected) exposure to COVID-19; F41.9 Anxiety disorder, unspecified; Z79.899 Other long term (current) drug therapy
CPT/HCPCS: 80048; 80061; 80164; 80178; 80307; 81003; 83036; 84132; 84439; 84443; 84703; 85025; G0480; J1200; J1630; J2060